=== PATIENT | male | born 1985 | race Caucasian/White ===

== ENCOUNTER 2018-01-28 19:40 | Emergency (ER) | payer SELFPAY ==
[~2018-01-28] VITALS: Ht 162.6 cm; Wt 107.0 kg
[2018-01-28] MEDS ORDERED: ROBAXIN-750750 MG PO (19:54)
[2018-01-28] MEDS ORDERED: DICLOFENAC SODI50 MG PO (19:55)
[2018-01-28] MEDS ORDERED: LAMISIL AT1 % EX (20:36)
[2018-01-28] MEDS ORDERED: KEFLEX500 M1 PO (20:36)
[2018-01-28 20:49] VITALS: BP 133/87
== END 2018-01-28 20:50 | disposition home or self-care (01) | DRG 607 ==
LOC: ED 19:40
DX: B35.3 Tinea pedis (principal); L03.031 Cellulitis of right toe; M79.671 Pain in right foot

== ENCOUNTER 2019-01-16 08:20 | Emergency (ER) | payer SELFPAY ==
[~2019-01-16] VITALS: Ht 162.6 cm; Wt 93.0 kg
[~2019-01-16 08:20] MED LIST: DICLOFENAC SODI50 MG PO; KEFLEX500 M1 PO; LAMISIL AT1 % EX; ROBAXIN-750750 MG PO
[2019-01-16 09:03] LABS: URINE BILIRUBIN - DIPSTICK NEGATIVE (NEGATIVE); URINE BLOOD DIPSTICK NEGATIVE (NEGATIVE); URINE COLOR YELLOW; URINE GLUCOSE - DIPSTICK NEGATIVE (NEGATIVE); URINE KETONE NEGATIVE (NEGATIVE); URINE LEUK ESTERASE NEGATIVE (NEGATIVE); URINE NITRITE - DIPSTICK NEGATIVE (Negative); URINE PH 5.5 (4.5-8.0); URINE PROTEIN - DIPSTICK NEGATIVE (NEG-TRACE); URINE SPECIFIC GRAVITY >=1.030; URINE UROBILINOGEN - DIPSTICK 0.2 E.U./dL (0.2)
[2019-01-16] MEDS ORDERED: TORADOL PO (10:48)
[2019-01-16] MEDS ORDERED: LEVAQUIN750 MG PO (10:48)
[2019-01-16 10:54] VITALS: BP 151/88
== END 2019-01-16 11:02 | disposition home or self-care (01) | DRG 728 ==
LOC: ED 08:20
PROVIDERS: Emergency Medicine
DX: N45.3 Epididymo-orchitis (principal); N50.812 Left testicular pain; R50.9 Fever, unspecified

== ENCOUNTER 2019-04-19 19:45 | Emergency (ER) | payer OTHER ==
[~2019-04-19] VITALS: Ht 162.6 cm; Wt 93.6 kg
[~2019-04-19 19:45] MED LIST changes: +LEVAQUIN750 MG PO; +TORADOL PO
[2019-04-19 20:36] VITALS: BP 141/86
[2019-04-19] MEDS ORDERED: ORPHENADRINE100 MG PO (20:39)
[2019-04-19] MEDS ORDERED: MOTRIN400 MG PO (20:39)
== END 2019-04-19 20:52 | disposition home or self-care (01) | DRG 563 ==
LOC: ED 19:45
DX: S39.012A Strain of muscle, fascia and tendon of lower back, initial encounter (principal); F17.200 Nicotine dependence, unspecified, uncomplicated; V43.52XA Car driver injured in collision with other type car in traffic accident, initial encounter

== ENCOUNTER 2019-04-28 11:32 | Emergency (ER) | payer OTHER ==
[~2019-04-28] VITALS: Ht 162.6 cm; Wt 93.6 kg
[~2019-04-28 11:32] MED LIST changes: +MOTRIN400 MG PO; +ORPHENADRINE100 MG PO
[2019-04-28] MEDS ORDERED: MOTRIN400 MG PO (13:09)
[2019-04-28] MEDS ORDERED: CYCLOBENZAPR5 MG PO (13:09)
[2019-04-28 13:38] VITALS: BP 138/82
== END 2019-04-28 13:42 | disposition home or self-care (01) | DRG 552 ==
LOC: ED 11:32
DX: M54.5 Low back pain (principal); F17.210 Nicotine dependence, cigarettes, uncomplicated

== ENCOUNTER 2019-12-16 | Emergency (ER) | payer SELFPAY ==
[~2019-12-16] MED LIST changes: +CYCLOBENZAPR5 MG PO
[2019-12-16 23:47] LABS: URINE BILIRUBIN - DIPSTICK NEGATIVE (NEGATIVE); URINE BLOOD DIPSTICK TRACE-INTACT (NEGATIVE); URINE CLARITY CLEAR; URINE COLOR YELLOW; URINE GLUCOSE - DIPSTICK NEGATIVE (NEGATIVE); URINE KETONE NEGATIVE (NEGATIVE); URINE LEUK ESTERASE NEGATIVE (Negative); URINE NITRITE - DIPSTICK NEGATIVE (Negative); URINE PROTEIN - DIPSTICK TRACE mg/dL (NEG-TRACE); URINE SPECIFIC GRAVITY >=1.030; URINE UROBILINOGEN - DIPSTICK 0.2 E.U./dL (0.2)
[2019-12-17] MEDS ORDERED: ORPHENADRINE C100 MG PO ×2 (01:34)
[2019-12-17] MEDS ORDERED: IBUPROFEN600 MG PO ×2 (01:34)
== END 2019-12-17 02:30 | disposition home or self-care (01) | DRG 552 ==
PROVIDERS: Emergency Medicine
DX: M54.5 Low back pain (principal); F17.210 Nicotine dependence, cigarettes, uncomplicated

== ENCOUNTER 2020-04-14 23:02 | Emergency (ER) | payer SELFPAY ==
[~2020-04-14] VITALS: Ht 162.6 cm; Wt 100.0 kg
[~2020-04-14 23:02] MED LIST changes: +IBUPROFEN600 MG PO; +ORPHENADRINE C100 MG PO
[2020-04-14] MEDS ORDERED: MAXITROL0.1 % OD (23:42)
[2020-04-14 23:59] VITALS: BP 129/72
== END 2020-04-14 23:58 | disposition home or self-care (01) | DRG 125 ==
LOC: ED 23:02
PROC: 08CSXZZ Extirpation of Matter from Right Conjunctiva, External Approach (ICD-10-PCS; principal; 2020-04-14)
DX: T15.11XA Foreign body in conjunctival sac, right eye, initial encounter (principal); F17.200 Nicotine dependence, unspecified, uncomplicated; X58.XXXA Exposure to other specified factors, initial encounter

== ENCOUNTER 2020-05-28 21:34 | Emergency (ER) | payer SELFPAY ==
[~2020-05-28] VITALS: Ht 162.6 cm; Wt 102.2 kg
[~2020-05-28 21:34] MED LIST changes: +MAXITROL0.1 % OD
[2020-05-28 22:07] LABS: HEMATOCRIT 46.2 % (39.0-50.0); HEMOGLOBIN 14.8 g/dl (14.0-18.0); IMMATURE GRANULOCYTES 0.5 % (0.0-5.0); MEAN CELL VOLUME 84.3 fL CALC (80.0-100.0); NEUT# 7.8 thou/uL (1.82-7.42); RED BLOOD COUNT 5.48 mill/uL (4.70-6.10); RED CELL DISTRI WIDTH 13.2 % (11.5-15.5)
[2020-05-28 22:24] LABS: ALBUMIN 4.6 g/dL (3.2-5.0); ALKALINE PHOSPHATASE 72 u/l (38-126); ANION GAP 13 (6-22 (CALC)); BILIRUBIN, TOTAL 0.3 mg/dL (0.0-1.4); BUN 14 mg/dL (9-20); BUN/CREATININE RATIO 21 (12-20 (CALC)); CARBON DIOXIDE 24 mmol/l (22-30); CHLORIDE 104 mmol/l (95-108); CREATININE 0.7 mg/dL (0.7-1.3); GFR > 60 ML/MIN (>=60 (CALC)); GFR FOR AFR.AMER. > 60 ML/MIN (>=60 (CALC)); LIPASE 120 u/l (23-300); POTASSIUM 3.3 mmol/l (3.5-5.1); SGOT/AST 35 u/l (17-59); SODIUM 138 mmol/l (137-146); TOTAL PROTEIN 7.6 g/dL (6.3-8.2)
[2020-05-28 22:29] LABS: ACT PARTIAL THROMBO TIME 28.1 SECONDS (20.0-32.5); PROTHROMBIN TIME 9.8 SECONDS (9.0-12.5)
[2020-05-28 23:42] VITALS: BP 106/67
== END 2020-05-28 23:42 | disposition home or self-care (01) | DRG 305 ==
LOC: ED 21:34
DX: I10 Essential (primary) hypertension (principal); E87.6 Hypokalemia; H53.8 Other visual disturbances; F17.200 Nicotine dependence, unspecified, uncomplicated

== ENCOUNTER 2021-10-19 14:37 | Emergency (ER) | payer SELFPAY ==
[~2021-10-19] VITALS: Ht 162.6 cm; Wt 110.0 kg
[2021-10-19 17:24] LABS: HEMATOCRIT 45.3 % (39.0-50.0); HEMOGLOBIN 14.9 g/dl (14.0-18.0); IMMATURE GRANULOCYTES 0.4 % (0.0-5.0); MEAN CELL VOLUME 83.6 fL CALC (80.0-100.0); MEAN CORPUSCULAR HGB 27.5 pG CALC (26.0-32.0); MEAN CORPUSCULAR HGB CONC 32.9 g/dL CAL (32.0-36.0); NEUT# 6.87 thou/uL (1.82-7.42); RED BLOOD COUNT 5.42 mill/uL (4.70-6.10)
[2021-10-19 17:42] LABS: ALBUMIN 3.8 g/dL (3.2-5.0); ALKALINE PHOSPHATASE 75 u/l (38-126); ANION GAP 9 (6-22 (CALC)); BILIRUBIN, TOTAL 0.4 mg/dL (0.0-1.4); BUN 12 mg/dL (9-20); BUN/CREATININE RATIO 19 (12-20 (CALC)); CHLORIDE 103 mmol/l (95-108); CREATININE 0.6 mg/dL (0.7-1.3); GFR > 60 ML/MIN (>=60 (CALC)); GFR FOR AFR.AMER. > 60 ML/MIN (>=60 (CALC)); POTASSIUM 3.7 mmol/l (3.5-5.1); SGOT/AST 28 u/l (17-59); SODIUM 138 mmol/l (137-146)
[2021-10-19 17:43] LABS: CARBON DIOXIDE 30 mmol/l (22-30)
[2021-10-19 20:45] VITALS: BP 140/72
== END 2021-10-19 20:50 | disposition home or self-care (01) | DRG 948 ==
LOC: ED 14:37
PROVIDERS: Family Medicine
DX: R60.0 Localized edema (principal); Z68.41 Body mass index [BMI] 40.0-44.9, adult; E66.9 Obesity, unspecified; F17.210 Nicotine dependence, cigarettes, uncomplicated

== ENCOUNTER 2024-12-04 17:05 | Observation (INO) | payer OTHER ==
[~2024-12-04] VITALS: Ht 162.6 cm; Wt 127.0 kg
[2024-12-04] VITALS (19 sets, daily range): BP systolic 139–201; BP diastolic 86–133
[2024-12-04] MEDS ORDERED: ADDERALL20 MG PO (17:38)
[2024-12-04] MEDS ORDERED: MORPHINE SULFATE 4 MG/ML VIAL IV ONE (17:40)
[2024-12-04] MEDS ORDERED: ONDANSETRON HCl 4 MG/2 ML SDV IV ONE (17:40)
[2024-12-04] MEDS ORDERED: LABETALOL HCL 100 MG/20 ML VIAL IV ONE (18:05)
[2024-12-04] MEDS ORDERED: methylPREDNISolone SODIUM SUCC 125 MG/2 ML SDV IV ONE (18:15)
[2024-12-04] MEDS ORDERED: IPRATROPIUM-Albuterol 0.5MG-2.5MG/3 ML NEB ONE ×2 (18:15)
[2024-12-04] MEDS ORDERED: cefTRIAXone SODIUM 2 GM in SODIUM CHLORIDE 0.9% 100 ML IV ONE (18:20)
[2024-12-04] MEDS ORDERED: AZITHROMYCIN 500 MG in SODIUM CHLORIDE 0.9% 500 ML IV ONE (18:20)
[2024-12-04 18:21] LABS: BASO% 0.3 % (0-3); EOS% 1.1 % (0-8); IMMATURE GRANULOCYTES 0.3 % (0.0-5.0); LYMPH% 11.9 % (15-41); MEAN CELL VOLUME 84.2 fL CALC (80.0-100.0); MEAN CORPUSCULAR HGB 27.4 pG CALC (26.0-32.0); MEAN CORPUSCULAR HGB CONC 32.6 g/dL CAL (32.0-36.0); MONO% 5.9 % (2-13); NEUT# 16.12 thou/uL (1.82-7.42); NEUT% 80.5 % (42-76); RED BLOOD COUNT 6.38 mill/uL (4.70-6.10); RED CELL DISTRI WIDTH 13.1 % (11.5-15.5)
[2024-12-04 18:22] LABS: HEMATOCRIT 53.7 % (39.0-50.0); HEMOGLOBIN 17.5 g/dl (14.0-18.0)
[2024-12-04 18:32] LABS: ALBUMIN 4.4 g/dL (3.2-5.0); CREATININE 0.6 mg/dL (0.7-1.3); POTASSIUM 3.8 mmol/l (3.5-5.1); TOTAL PROTEIN 7.5 g/dL (6.3-8.2)
[2024-12-04 18:37] LABS: BILIRUBIN, TOTAL 0.9 mg/dL (0.2-1.3)
[2024-12-04] MEDS ORDERED: SODIUM CHLORIDE 0.9% 1,000 ML IV PRN (20:25)
[2024-12-04] MEDS ORDERED: MAGNESIUM HYDROXIDE 30 ML UDC PO PRN (20:25)
[2024-12-04] MEDS ORDERED: ACETAMINOPHEN 325 MG/TAB PO PRN (20:25)
[2024-12-04] MEDS ORDERED: Levofloxacin 750 mg Premix 150 ML IV SCH (20:30)
[2024-12-04] MEDS ORDERED: ONDANSETRON HCl 4 MG/2 ML SDV IV PRN (20:30)
[2024-12-04] MEDS ORDERED: hydrALAZINE HCL 20 MG/ML VIAL(1 ML) IV PRN (20:30)
[2024-12-04] MEDS ORDERED: methylPREDNISolone Sod Succ 40 MG/ML SDV IV SCH (21:00)
[2024-12-04] MEDS ORDERED: ENOXAPARIN SODIUM 40 MG/0.4 ML SYR SC SCH (21:00)
[2024-12-04] MEDS ORDERED: IPRATROPIUM-Albuterol 0.5MG-2.5MG/3 ML NEB SCH (23:00)
[2024-12-05] VITALS (9 sets, daily range): BP systolic 127–163; BP diastolic 62–93
[2024-12-05 07:03] LABS: BASO% 0.1 % (0-3); EOS% 0.1 % (0-8); HEMATOCRIT 54.6 % (39.0-50.0); HEMOGLOBIN 17.4 g/dl (14.0-18.0); IMMATURE GRANULOCYTES 0.3 % (0.0-5.0); LYMPH% 7.4 % (15-41); MEAN CELL VOLUME 86.4 fL CALC (80.0-100.0); MEAN CORPUSCULAR HGB 27.5 pG CALC (26.0-32.0); MEAN CORPUSCULAR HGB CONC 31.9 g/dL CAL (32.0-36.0); MONO% 1.4 % (2-13); NEUT# 11.09 thou/uL (1.82-7.42); NEUT% 90.7 % (42-76); RED BLOOD COUNT 6.32 mill/uL (4.70-6.10)
[2024-12-05 07:31] LABS: ALBUMIN 4.2 g/dL (3.2-5.0); CHOLESTEROL HDL RATIO 5.3 (<4.4 (CALC)); CREATININE 0.7 mg/dL (0.7-1.3); MAGNESIUM 2.1 mg/dL (1.6-2.3); POTASSIUM 4.1 mmol/l (3.5-5.1); TOTAL PROTEIN 7.4 g/dL (6.3-8.2)
[2024-12-05 07:45] LABS: BILIRUBIN, TOTAL 0.4 mg/dL (0.2-1.3)
[2024-12-06] VITALS: BP 130/78
[2024-12-06 03:50] VITALS: BP 158/87
[2024-12-06 04:00] VITALS: BP 158/87
[2024-12-06 04:51] LABS: HEMATOCRIT 48.7 % (39.0-50.0); HEMOGLOBIN 16.3 g/dl (14.0-18.0); IMMATURE GRANULOCYTES 0.7 % (0.0-5.0); LYMPH% 5.7 % (15-41); MEAN CELL VOLUME 88.5 fL CALC (80.0-100.0); MEAN CORPUSCULAR HGB 29.6 pG CALC (26.0-32.0); MEAN CORPUSCULAR HGB CONC 33.5 g/dL CAL (32.0-36.0); MONO% 3.7 % (2-13); NEUT# 19.23 thou/uL (1.82-7.42); NEUT% 89.9 % (42-76); RED BLOOD COUNT 5.5 mill/uL (4.70-6.10); RED CELL DISTRI WIDTH 13.3 % (11.5-15.5)
[2024-12-06 04:59] LABS: ALBUMIN 3.7 g/dL (3.2-5.0); BILIRUBIN, TOTAL 0.3 mg/dL (0.2-1.3); CREATININE 0.6 mg/dL (0.7-1.3); MAGNESIUM 2.3 mg/dL (1.6-2.3); POTASSIUM 4.3 mmol/l (3.5-5.1); TOTAL PROTEIN 6.4 g/dL (6.3-8.2)
[2024-12-06 08:36] VITALS: BP 158/79
[2024-12-06 21:00] VITALS: BP 113/54
[2024-12-06 23:40] VITALS: BP 149/83
[2024-12-07 03:36] VITALS: BP 159/104
[2024-12-07 04:12] VITALS: BP 157/107
[2024-12-07 05:34] LABS: BASO% 0.1 % (0-3); EOS% 0.1 % (0-8); HEMATOCRIT 48.6 % (39.0-50.0); HEMOGLOBIN 15.7 g/dl (14.0-18.0); IMMATURE GRANULOCYTES 0.5 % (0.0-5.0); MEAN CELL VOLUME 86.3 fL CALC (80.0-100.0); MEAN CORPUSCULAR HGB 27.9 pG CALC (26.0-32.0); MEAN CORPUSCULAR HGB CONC 32.3 g/dL CAL (32.0-36.0); MONO% 6.7 % (2-13); NEUT# 16.25 thou/uL (1.82-7.42); NEUT% 75.6 % (42-76); RED BLOOD COUNT 5.63 mill/uL (4.70-6.10); RED CELL DISTRI WIDTH 13.5 % (11.5-15.5)
[2024-12-07 05:43] LABS: URINE BILIRUBIN - DIPSTICK Negative (NEGATIVE); URINE BLOOD DIPSTICK Negative (NEGATIVE); URINE GLUCOSE - DIPSTICK 100 mg/dL (NEGATIVE); URINE KETONE Negative (NEGATIVE); URINE LEUK ESTERASE Negative (NEGATIVE); URINE NITRITE - DIPSTICK Negative (Negative); URINE PROTEIN - DIPSTICK 30 mg/dL (NEG-TRACE); URINE SPECIFIC GRAVITY >=1.030; URINE UROBILINOGEN - DIPSTICK 0.2 E.U./dL (0.2)
[2024-12-07 05:48] LABS: URINE COLOR Yellow
[2024-12-07 05:49] LABS: ALBUMIN 3.8 g/dL (3.2-5.0); BILIRUBIN, TOTAL 0.4 mg/dL (0.2-1.3); CREATININE 0.6 mg/dL (0.7-1.3); POTASSIUM 3.7 mmol/l (3.5-5.1); TOTAL PROTEIN 6.5 g/dL (6.3-8.2)
[2024-12-07 05:54] LABS: URINE BACTERIA FEW hpf; URINE CALCIUM OXALATE CRYSTALS FEW lpf; URINE EPITHELIAL CELLS FEW EPI/hpf (0-FEW)
[2024-12-07] MEDS ORDERED: DOXYCYCLINE100 MG PO (09:47)
[2024-12-07 10:36] VITALS: BP 155/86
== END 2024-12-07 12:00 | disposition home or self-care (01) | DRG 438 ==
LOC: ED 17:05 → ED-I 20:00 → ED 20:23 → MS2 20:24
PROVIDERS: Family Medicine; Nurse Practitioner Family; ADMIT Internal Medicine; ATTEND Internal Medicine
DX: K85.90 Acute pancreatitis without necrosis or infection, unspecified (principal); J18.9 Pneumonia, unspecified organism; J96.02 Acute respiratory failure with hypercapnia; J96.01 Acute respiratory failure with hypoxia; J44.1 Chronic obstructive pulmonary disease with (acute) exacerbation; J44.0 Chronic obstructive pulmonary disease with (acute) lower respiratory infection; I10 Essential (primary) hypertension; E66.01 Morbid (severe) obesity due to excess calories; F90.9 Attention-deficit hyperactivity disorder, unspecified type; F17.200 Nicotine dependence, unspecified, uncomplicated; Z20.822 Contact with and (suspected) exposure to COVID-19
CPT/HCPCS: G0378; J0360; J0456; J0696; J1650; J1836; J1920; J2405; Q9967